=== PATIENT | male | born 1950 | race Caucasian/White ===

== ENCOUNTER 2018-12-20 19:24 | Emergency (ER) | payer MEDICARE, BC ==
[~2018-12-20] VITALS: Ht 190.5 cm; Wt 90.5 kg
[~2018-12-20 19:24] MED LIST: CEFTIN500 MG PO; CELLCEPT 5500 MG/TAB PO; CELLCEPT500 M1; COZAAR 50MG50 MG/TAB PO; DOXYCYCLINE 10100 MG PO; FLOMAX 0.40.4 MG/CAP; FOLGARD OS; FOLIC ACID 11 MG/TA1 PO; LIPITOR20 MG PO; NATURE'S BLEND400 IU PO; NORCO 325 MG-51 TAB PO; PEPCID AC20 MG; PHENERGAN 25 TA25 MG PO; PREDNISONE 5MG5 MG PO; VALIUM 5MG T5 MG/TAB PO; VITAMIN D32000 IU PO; ZOFRAN 4MG T4 MG/TAB PO
[2018-12-20 19:48] VITALS: TEMP 97.3
[2018-12-20 20:47] LABS: BASO # 0.1 (0.0-0.2); BASO % 0.3 % (0.0-2.0); EOS # 0.1 (0.0-0.7); EOS % 0.9 % (0-4.0); GRAN # 8.4 (1.4-6.5); GRAN % 55.8 % (42.2-75.2); HEMATOCRIT 50.8 % (42.0-52.0); HEMOGLOBIN 16.1 g/dl (13.5-18.0); LYMPH # 5.4 (1.2-3.4); LYMPH % 35.8 % (20.0-51.0); MEAN CELL VOLUME 94 fl (80.0-100.0); MEAN CORPUSCULAR HEMOGLOBIN 30 pg (27.0-31.0); MEAN CORPUSCULAR HGB CONC 32 g/dl (33.0-37.0); MEAN PLATELET VOLUME 9.1 fl (7.4-10.4); MONO % 6.9 % (1.7-9.3); PLATELET COUNT 265 K/mm3 (130-400); REDCELL DISTRIBUTION WIDTH-CV 14.5 % (11.5-14.5)
[2018-12-20 21:01] LABS: COLLECTION METHOD CLEAN CATCH
[2018-12-20 21:02] LABS: ALBUMIN 4.6 gm/dL (3.5-5.0); BILIRUBIN,TOTAL 0.7 mg/dL (0.0-1.0); C-REACTIVE PROTEIN 0.6 mg/dL (0.0-0.9); CALCIUM 11.6 mg/dL (8.4-10.2); CREATININE, serum 1.88 (0.66-1.25); POTASSIUM 4.2 mmol/L (3.4-5.0)
[2018-12-20 21:07] LABS: MUCOUS Present /lpf; PH 5 (5-8); SQUAMOUS EPITHELIAL None Seen /hpf; URINE APPEARANCE Clear; URINE BACTERIA None Seen /hpf; URINE BILIRUBIN Negative (NEGATIVE); URINE BLOOD Negative (NEGATIVE); URINE COLOR Yellow; URINE GLUCOSE Negative (NEGATIVE); URINE KETONE Negative (NEGATIVE); URINE LEUKOCYTE ESTERASE Negative (NEGATIVE); URINE NITRATE Negative (NEGATIVE); URINE PROTEIN(semi-quant) Negative (NEGATIVE); URINE RBC 0-2 /hpf; URINE UROBILINOGEN Negative (NEGATIVE); URINE WBC 0-2 /hpf
[2018-12-20] MEDS ORDERED: ZITHROMAX500 M2 PO (23:09)
[2018-12-20] MEDS ORDERED: ZOFRAN 4MG T4 MG/TAB PO (23:09)
[2018-12-20 23:30] VITALS: BP 142/87; PULSE 89
== END 2018-12-20 23:45 | disposition home or self-care (01) ==
LOC: COL.ER 19:24
PROVIDERS: Emergency Medicine
DX: A08.39 Other viral enteritis (principal); I10 Essential (primary) hypertension
CPT/HCPCS: J2405; J7030

== ENCOUNTER 2021-06-15 18:27 | Emergency (ER) | payer BC ==
[~2021-06-15] VITALS: Ht 190.5 cm; Wt 90.9 kg
[~2021-06-15 18:27] MED LIST changes: +ZITHROMAX500 M2 PO
[2021-06-15] MEDS ORDERED: COREG 3.123.125 MG/T PO (21:05)
[2021-06-15] MEDS ORDERED: NORVASC 5MG5 MG/TAB PO (21:05)
[2021-06-15 22:04] LABS: BASO # 0.1 K/mm3 (0.0-0.2); BASO % 0.5 % (0.0-2.0); EOS # 0.2 K/mm3 (0.0-0.7); GRAN # 5.5 K/mm3 (1.4-6.5); GRAN % 46.1 % (42.2-75.2); HEMATOCRIT 42.1 % (42.0-52.0); HEMOGLOBIN 13.5 g/dl (13.5-18.0); LYMPH # 5.2 K/mm3 (1.2-3.4); LYMPH % 42.8 % (20.0-51.0); MEAN CELL VOLUME 90 fl (80.0-100.0); MEAN CORPUSCULAR HEMOGLOBIN 29 pg (27.0-31.0); MEAN CORPUSCULAR HGB CONC 32 g/dl (33.0-37.0); MONO % 8.4 % (1.7-9.3); PLATELET COUNT 300 K/mm3 (130-400); RED BLOOD COUNT 4.69 M/mm3 (4.20-5.60); REDCELL DISTRIBUTION WIDTH-CV 14.8 % (11.5-14.5)
[2021-06-15 22:28] LABS: ALBUMIN 4.1 gm/dL (3.4-4.8); BILIRUBIN,TOTAL 0.5 mg/dL (0.2-1.2); CALCIUM 11.5 mg/dL (8.4-10.2); CREATININE, serum 1.84 mg/dL (0.72-1.25); POTASSIUM 4.1 mmol/L (3.5-4.5); TOTAL PROTEIN 7.3 gm/dL (6.2-8.1)
[2021-06-15 23:15] VITALS: BP 142/79; PULSE 84; TEMP 98.1
== END 2021-06-15 23:15 ==
LOC: COL.ER 18:27
PROVIDERS: Nurse Practitioner
DX: M79.604 Pain in right leg (principal); R79.1 Abnormal coagulation profile

== ENCOUNTER → 2021-06-17 | Outpatient (CLI) | payer BC ==
[~2021-06-17] MED LIST changes: +COREG 3.123.125 MG/T PO; +NORVASC 5MG5 MG/TAB PO
== END ==
LOC: COL.VAS 07:49
DX: M79.604 Pain in right leg (principal)

== ENCOUNTER 2022-01-28 01:44 | Emergency (ER) | payer BC ==
[~2022-01-28] VITALS: Ht 190.5 cm; Wt 86.4 kg
[~2022-01-28 01:44] MED LIST changes: +MASON NATURAL2000 IU PO; +NATURAL E400 IU PO; -NATURE'S BLEND400 IU PO; -PEPCID AC20 MG; +PEPCID AC20 MG PO; -PREDNISONE 5MG5 MG PO; -VITAMIN D32000 IU PO
[2022-01-28 01:49] VITALS: TEMP 99.6
[2022-01-28 02:23] LABS: BASO % 0.4 % (0.0-2.0); EOS % 0.4 % (0.0-4.0); GRAN # 3.9 K/mm3 (1.4-6.5); GRAN % 68.1 % (42.2-75.2); HEMATOCRIT 38.9 % (42.0-52.0); HEMOGLOBIN 12.4 g/dl (13.5-18.0); LYMPH # 1.2 K/mm3 (1.2-3.4); LYMPH % 21.9 % (20.0-51.0); MEAN CELL VOLUME 87 fl (80.0-100.0); MEAN CORPUSCULAR HEMOGLOBIN 28 pg (27-31); MEAN CORPUSCULAR HGB CONC 32 g/dl (33.0-37.0); MEAN PLATELET VOLUME 9.2 fl (7.4-10.4); MONO # 0.5 K/mm3 (0.1-0.6); MONO % 8.8 % (1.7-9.3); PLATELET COUNT 256 K/mm3 (130-400); RED BLOOD COUNT 4.48 M/mm3 (4.20-5.60); REDCELL DISTRIBUTION WIDTH-CV 14.4 % (11.5-14.5)
[2022-01-28 02:41] LABS: ALBUMIN 3.2 gm/dL (3.4-4.8); BILIRUBIN,TOTAL 0.4 mg/dL (0.2-1.2); CREATININE, serum 1.96 mg/dL (0.72-1.25); POTASSIUM 4.5 mmol/L (3.5-4.5); TOTAL PROTEIN 6.5 gm/dL (6.2-8.1)
[2022-01-28] MEDS ORDERED: TESSALON PERLE200 MG PO (03:01)
[2022-01-28 03:08] VITALS: BP 132/84; PULSE 86
== END 2022-01-28 03:09 | disposition home or self-care (01) ==
LOC: COL.ER 01:44
PROVIDERS: Emergency Medicine Emergency Medical Services
DX: U07.1 COVID-19 (principal); Z73.0 Burn-out
CPT/HCPCS: J7030

== ENCOUNTER 2022-01-30 13:10 | Outpatient (RCR) | payer BC ==
[~2022-01-30] VITALS: Ht 190.5 cm; Wt 86.3 kg
[~2022-01-30 13:10] MED LIST changes: +TESSALON PERLE200 MG PO
[2022-01-30 13:19] VITALS: BP 116/103; PULSE 66
[2022-01-30 13:30] VITALS: BP 104/57; PULSE 54; TEMP 98.3
[2022-01-30 13:45] VITALS: BP 109/50; PULSE 53
[2022-01-30 14:00] VITALS: BP 108/59; PULSE 52
[2022-01-30 14:15] VITALS: BP 113/52; PULSE 51
[2022-01-30 14:40] VITALS: BP 118/57; PULSE 52
[2022-01-30] MEDS ORDERED: PREDNISONE 5MG5 MG PO (15:32)
== END 2022-01-30 15:32 ==
LOC: EUO 13:10
DX: U07.1 COVID-19 (principal); N18.9 Chronic kidney disease, unspecified
CPT/HCPCS: M0222; Q0222

== ENCOUNTER → 2022-04-17 | Outpatient (CLI) | payer BC ==
[~2022-04-17] MED LIST changes: +PREDNISONE 5MG5 MG PO
== END ==
LOC: COL.VAS 09:55
DX: M79.89 Other specified soft tissue disorders (principal); I77.0 Arteriovenous fistula, acquired

== ENCOUNTER 2023-08-21 08:56 | Inpatient (IN) | payer MEDICARE ==
[2023-08-21] VITALS (7 sets, daily range): BP systolic 146–174; BP diastolic 78–86; PULSE 71–94; TEMP 98.2–98.4
[~2023-08-21] VITALS: Ht 190.5 cm; Wt 84.5 kg
[~2023-08-21 08:56] MED LIST changes: +APRESOLINE 25MG25 MG PO; +BACTRIM DS 8001 TAB PO; +CEPHALEXIN500 M1 PO; +DESYREL 50MG50 MG PO; +FERROUSAL325 MG PO; +FOLGARD RX 1 MG1 TAB PO; +HYTRIN 1MG C1 MG/CAP PO; +LASIX 20MG TABL20 MG PO; +MAG-OX 400400 MG/TAB PO; +NORVASC 10MG10 MG PO; +OMNICEF 300MG300 MG PO; +OXYGEN NASAL.CANN; +PROBIOTIC ACID1 EAC3 PO; +SEPTRA DS 8001 TAB PO; +SPORANOX100 MG PO; +TYLENOL 500MG500 MG PO; +ZYVOX 600MG600 MG PO; +[UNRECOGNIZED DRUG - SUPPLY] ICA
[2023-08-21 09:35] LABS: COLLECTION METHOD CLEAN CATCH
[2023-08-21 09:40] LABS: BASO % 0.2 % (0.0-2.0); EOS # 0.1 K/mm3 (0.0-0.7); EOS % 0.6 % (0.0-4.0); GRAN # 7.4 K/mm3 (1.4-6.5); GRAN % 72.3 % (42.2-75.2); HEMOGLOBIN 10.5 g/dl (13.5-18.0); LYMPH # 1.4 K/mm3 (1.2-3.4); LYMPH % 14.1 % (20.0-51.0); MEAN CELL VOLUME 89 fl (80.0-100.0); MEAN CORPUSCULAR HEMOGLOBIN 28 pg (27-31); MEAN CORPUSCULAR HGB CONC 31 g/dl (33.0-37.0); MEAN PLATELET VOLUME 10.3 fl (7.4-10.4); MONO # 1.3 K/mm3 (0.1-0.6); MONO % 12.4 % (1.7-9.3); PLATELET COUNT 213 K/mm3 (130-400); RED BLOOD COUNT 3.76 M/mm3 (4.20-5.60); REDCELL DISTRIBUTION WIDTH-CV 18.6 % (11.5-14.5)
[2023-08-21 09:54] LABS: HEMATOCRIT 33.5 % (42.0-52.0)
[2023-08-21 09:56] LABS: ALBUMIN 3.6 gm/dL (3.4-4.8); BILIRUBIN,TOTAL 0.5 mg/dL (0.2-1.2); C-REACTIVE PROTEIN 2.2 mg/dL (0.00-0.50); CALCIUM 10.2 mg/dL (8.4-10.2); CREATININE, serum 1.61 mg/dL (0.72-1.25); POTASSIUM 4.3 mmol/L (3.5-4.5); TOTAL PROTEIN 5.9 gm/dL (6.2-8.1)
[2023-08-21 10:07] LABS: URINE APPEARANCE Clear (CLEAR/HAZY); URINE COLOR Yellow (YELLOW); URINE GLUCOSE Negative (NEGATIVE); URINE KETONE Negative (NEGATIVE); URINE PROTEIN(semi-quant) 2+ (NEGATIVE)
[2023-08-21 10:08] LABS: SQUAMOUS EPITHELIAL None Seen /hpf (0-10); URINE BACTERIA Rare /hpf (NONE SEEN); URINE BLOOD TRACE-INTACT (NEGATIVE); URINE NITRATE Negative (NEGATIVE); URINE RBC 0-2 /hpf (0-2); URINE UROBILINOGEN 0.2 E.U/dL (0.2-1.0)
[2023-08-21] MEDS ORDERED: ZOFRAN 4MG T4 MG/TAB PO (13:10)
[2023-08-21] MEDS ORDERED: PEPCID 20MG TAB20 MG PO (13:11)
[2023-08-21] MEDS ORDERED: COZAAR 50MG50 MG/TAB PO (13:12)
--- NOTE | 2023-08-21 13:37 | NUR ---
Patient arrived to the medical unit, alert and oriented x 4 VSS with some HTN. Denies any pain at this time. Assessment intake completed.
--- NOTE | 2023-08-21 19:14 | NUR ---
Patient is resting in bed, waiting for his dinner. Report given to LILIANA Strauss.
[2023-08-22] VITALS (10 sets, daily range): BP systolic 123–146; BP diastolic 69–79; PULSE 7–76; TEMP 98.1–98.5
--- NOTE | 2023-08-22 05:22 | NUR ---
NURSING SHIFT ASSESSMENT COMPLETED. THE PATIENT WAS ALERT AND ORIENTED. THE PATIENT APPEARED COMFORTABLE AND WITHOUT DISTRESS. FRESH WATER PROVIDED. NO OTHER NEEDS AT THIS TIME. EVENING MEDICATIONS AND THE PLAN OF CARE REVIEWED. CALL LIGHT AND PERSONAL BELONGINGS WITHIN REACH. BED IN LOW POSITION.
[2023-08-22 08:02] LABS: BASO % 0.2 % (0.0-2.0); EOS # 0.1 K/mm3 (0.0-0.7); EOS % 0.8 % (0.0-4.0); GRAN # 6.9 K/mm3 (1.4-6.5); GRAN % 70.1 % (42.2-75.2); LYMPH # 1.7 K/mm3 (1.2-3.4); LYMPH % 16.9 % (20.0-51.0); MEAN CELL VOLUME 87 fl (80.0-100.0); MEAN CORPUSCULAR HGB CONC 31 g/dl (33.0-37.0); MEAN PLATELET VOLUME 9.4 fl (7.4-10.4); MONO # 1.1 K/mm3 (0.1-0.6); MONO % 11.6 % (1.7-9.3); PLATELET COUNT 194 K/mm3 (130-400); REDCELL DISTRIBUTION WIDTH-CV 18.6 % (11.5-14.5)
[2023-08-22 08:04] LABS: HEMATOCRIT 31.4 % (42.0-52.0); HEMOGLOBIN 9.8 g/dl (13.5-18.0); MEAN CORPUSCULAR HEMOGLOBIN 27 pg (27-31)
[2023-08-22 08:21] LABS: CALCIUM 9.3 mg/dL (8.4-10.2); CREATININE, serum 1.4 mg/dL (0.72-1.25)
--- NOTE | 2023-08-22 10:43 | NUR ---
Patient alert and oriented x4. Shift assessment complete. Patient complained of nausea and discomfort at shift change, PRN Zofran and Tylenol administered by overnight nurse. Patient has been ambulating self around room, gait steady. Currently in bed with call light in reach, all needs met at this time.
--- NOTE | 2023-08-22 12:59 | NUR ---
Clerical Warehouse Worker met with patient to discuss discharge planning. Patient lives in [place] with his , Teresa (ph#[phone]) and he sees Dr. Portillo for primary care. Patient advised his , Teresa lives in [place] and works there as a nurse. Patient obtains medications from [facility] with no difficulties and does not use any DME. Patient is independent with ADLS and is able to drive himself to medical appointments. Patient advised Teresa is his DPOA-HC and there is a copy located in his safe deposit box at home. Discharge Plan: Home
--- NOTE | 2023-08-22 13:38 | NUR ---
Data: Babbitt Spinner visit offered during Babbitt Spinner rounds. Assessment: Patient declined visit. Plan of Care: [facility]plains will remain available upon Patient's request while admitted to this hospital.
--- NOTE | 2023-08-22 18:47 | NUR ---
Patient remains stable. Denies pain at this time. Ambulating at baseline. Patient has had good urine output all throughout shift. Tolerating food and fluids well. Patient currently in bed with call light in reach, all needs met at this time.
--- NOTE | 2023-08-22 23:22 | NUR ---
patient lying in bed alert and oriented x4. pt denies chest pain and shortness of breath. IV in RF is patent, site clean dry and intact. pt refused melatonin at this time. no remarkable skin findings noted. pt ambulating with steady gait. call light within reach, will continue to monitor.
[2023-08-23] VITALS (13 sets, daily range): BP systolic 129–163; BP diastolic 64–92; PULSE 59–85; TEMP 97.5–99.2
[2023-08-23 07:11] LABS: BASO % 0.2 % (0.0-2.0); EOS # 0.2 K/mm3 (0.0-0.7); EOS % 2.1 % (0.0-4.0); GRAN # 6.3 K/mm3 (1.4-6.5); GRAN % 69.6 % (42.2-75.2); LYMPH # 1.5 K/mm3 (1.2-3.4); LYMPH % 16.1 % (20.0-51.0); MEAN CELL VOLUME 89 fl (80.0-100.0); MEAN CORPUSCULAR HGB CONC 31 g/dl (33.0-37.0); MEAN PLATELET VOLUME 9.7 fl (7.4-10.4); MONO # 1.1 K/mm3 (0.1-0.6); MONO % 11.7 % (1.7-9.3); PLATELET COUNT 193 K/mm3 (130-400); RED BLOOD COUNT 3.24 M/mm3 (4.20-5.60); REDCELL DISTRIBUTION WIDTH-CV 18.4 % (11.5-14.5)
[2023-08-23 07:16] LABS: HEMATOCRIT 28.8 % (42.0-52.0); MEAN CORPUSCULAR HEMOGLOBIN 28 pg (27-31)
[2023-08-23 07:30] LABS: CALCIUM 8.9 mg/dL (8.4-10.2); CREATININE, serum 1.32 mg/dL (0.72-1.25); POTASSIUM 3.9 mmol/L (3.5-4.5)
--- NOTE | 2023-08-23 11:30 | NUR ---
Patient alert and oriented x4. Shift assessment complete. Lowgrade temperature noted and patient complains of achey muscles. PRN Tylenol administered. Urine output adequate and yellow/clear. Activity at baseline. Patient in bed with call light in reach, all needs met at this time.
--- NOTE | 2023-08-23 17:15 | NUR ---
Patient remains stable. Mood is pleasant and activity is at baseline. Patient took a shower independent with cares. Voices no concerns other that discharge planning. All needs met at this time.
--- NOTE | 2023-08-23 20:10 | NUR ---
Patient assessed at this time, see shift assessment, remains on room air, still with IV infusing well on right forearm, requested tylenol, denies further needs, call light and personal items within reach, will continue to monitor.
[2023-08-24] VITALS (11 sets, daily range): BP systolic 144–175; BP diastolic 79–88; PULSE 50–71; TEMP 97.5–99
--- NOTE | 2023-08-24 04:04 | NUR ---
Patient's blood pressure is 170/80 manual, informed Marilyn Banegas and received an order for hydralazine.
[2023-08-24 07:23] LABS: BASO % 0.4 % (0.0-2.0); EOS # 0.2 K/mm3 (0.0-0.7); EOS % 2.9 % (0.0-4.0); GRAN # 4.4 K/mm3 (1.4-6.5); GRAN % 60.9 % (42.2-75.2); LYMPH # 1.9 K/mm3 (1.2-3.4); LYMPH % 25.6 % (20.0-51.0); MEAN CELL VOLUME 90 fl (80.0-100.0); MEAN CORPUSCULAR HGB CONC 31 g/dl (33.0-37.0); MEAN PLATELET VOLUME 10.1 fl (7.4-10.4); MONO # 0.7 K/mm3 (0.1-0.6); MONO % 9.8 % (1.7-9.3); PLATELET COUNT 235 K/mm3 (130-400); RED BLOOD COUNT 3.33 M/mm3 (4.20-5.60); REDCELL DISTRIBUTION WIDTH-CV 18.6 % (11.5-14.5)
[2023-08-24 07:24] LABS: HEMATOCRIT 29.8 % (42.0-52.0); HEMOGLOBIN 9.1 g/dl (13.5-18.0); MEAN CORPUSCULAR HEMOGLOBIN 27 pg (27-31)
[2023-08-24 07:39] LABS: CALCIUM 9.3 mg/dL (8.4-10.2); CREATININE, serum 1.33 mg/dL (0.72-1.25); POTASSIUM 3.8 mmol/L (3.5-4.5)
--- NOTE | 2023-08-24 09:58 | NUR ---
PT DOING WELL THIS MORNING, WATCHING THE NEWS IN BED ON ASSESSMENT. NO COMPLAINTS OF PAIN OR DISCOMFORT. PT STATED HE IS READY TO GET HOME AND NEEDS TO LEAVE TODAY HE HAS CONTRACTURES COMING TO HIS HOUSE AND HE CANNOT MISS THEM. PT STATED HE WOULD LIKE TO DISCHARGE AFTER MEETING WITH INFECTIOUS DISEASE. PT STATED HE IS WILLING TO DO OUT PATIENT INFUSIONS OR MEDICATION NEEDED BUT CAN NOT STAY IN THE HOSPITAL.
--- NOTE | 2023-08-24 15:40 | NUR ---
oncology social worker attended clinical rounds and was informed pt is waiting on ID consult to determine the need for IV antibiotics. Pt is adamant on discharging today. Pt has used outpatient PT at [facility] and is reccomened to continue. oncology social worker completed IM from [employer] with pt. Pt signed and copy put in his discharge packet. Original in chart. Pending ID consult at this time. Discharge Plan: Home with Outpatient PT continued
[2023-08-24] MEDS ORDERED: ZYVOX 600MG600 MG PO (17:28)
--- NOTE | 2023-08-24 18:14 | NUR ---
ALL DISCHARGE INSTRUCTIONS REVIEWED WITH PT, ALL QUESTIONS ANSWERED AT THAT TIME. IV SITE TO RIGHT FOREARM DISCONTINUED, CATHETER TIP INTACT. PT CURRENTLY PACKED AND READY TO DISCHARGE JUST WAITING FOR HIS RIDE TO ARRIVE. PT PLANS TO VESSEL TRAFFIC OFFICER PRESCRIPTION FROM [facility].
--- NOTE | 2023-08-24 18:29 | NUR ---
PT ESCORTED OUT VIA WHEELCHAIR BY PCT AT THIS TIME. ALL PERSONAL BELONGINGS TAKEN WITH PT.
== END 2023-08-24 18:30 | disposition home or self-care (01) | DRG 690 ==
LOC: COL.ER 08:56 → MEDICAL 12:08
PROVIDERS: Emergency Medicine; Nurse Practitioner Family; ADMIT Hospitalist
DX: N39.0 Urinary tract infection, site not specified (principal); Q61.3 Polycystic kidney, unspecified; N40.0 Benign prostatic hyperplasia without lower urinary tract symptoms; E78.5 Hyperlipidemia, unspecified; E79.0 Hyperuricemia without signs of inflammatory arthritis and tophaceous disease; K76.89 Other specified diseases of liver; D64.9 Anemia, unspecified; N18.30 Chronic kidney disease, stage 3 unspecified; I12.9 Hypertensive chronic kidney disease with stage 1 through stage 4 chronic kidney disease, or unspecified chronic kidney disease
CPT/HCPCS: OP; G0378; J0360; J2185; J2405; J7030; J7512; J7517; Q3014

== ENCOUNTER 2023-09-15 09:58 | Emergency (ER) | payer MEDICARE ==
[~2023-09-15] VITALS: Ht 182.9 cm; Wt 83.2 kg
[2023-09-15] VITALS (7 sets, daily range): BP systolic 137–153; BP diastolic 66–85; PULSE 64–70; TEMP 97.6–97.9
[~2023-09-15 09:58] MED LIST changes: +PEPCID 20MG TAB20 MG PO
[2023-09-15] MEDS ORDERED: NS 1,000 ML IV ONE (10:15)
[2023-09-15 10:18] LABS: BASO % 0.3 % (0.0-2.0); EOS % 0.7 % (0.0-4.0); GRAN # 3.5 K/mm3 (1.4-6.5); GRAN % 56.6 % (42.2-75.2); LYMPH # 2.1 K/mm3 (1.2-3.4); LYMPH % 34.8 % (20.0-51.0); MEAN CELL VOLUME 90 fl (80.0-100.0); MEAN CORPUSCULAR HGB CONC 30 g/dl (33.0-37.0); MEAN PLATELET VOLUME 9.6 fl (7.4-10.4); MONO # 0.5 K/mm3 (0.1-0.6); MONO % 7.3 % (1.7-9.3); PLATELET COUNT 152 K/mm3 (130-400); RED BLOOD COUNT 2.51 M/mm3 (4.20-5.60); REDCELL DISTRIBUTION WIDTH-CV 19.1 % (11.5-14.5)
[2023-09-15 10:29] LABS: HEMATOCRIT 22.7 % (42.0-52.0); HEMOGLOBIN 6.7 g/dl (13.5-18.0); MEAN CORPUSCULAR HEMOGLOBIN 27 pg (27-31)
[2023-09-15 10:31] LABS: ALANINE AMINOTRANSFERASE 17 U/L (0-55); ALBUMIN 3.3 gm/dL (3.4-4.8); ALKALINE PHOSPHATASE 68 U/L (40-150); ANION GAP 11 mmol/L (7-16); AST,SGOT 13 U/L (5-34); BILIRUBIN,TOTAL 0.9 mg/dL (0.2-1.2); BLOOD UREA NITROGEN 48 mg/dL (8-26); CALCIUM 9.9 mg/dL (8.4-10.2); CARBON DIOXIDE 18 mmol/L (23-31); CHLORIDE 112 mmol/L (98-107); CREATINE KINASE 20 U/L (30-200); CREATININE, serum 2.05 mg/dL (0.72-1.25); GLUCOSE 128 mg/dL (70-99); POTASSIUM 4.7 mmol/L (3.5-4.5); SODIUM 141 mmol/L (136-145); TOTAL PROTEIN 5.3 gm/dL (6.2-8.1)
[2023-09-15 10:36] LABS: TROPONIN-I < 0.010 ng/mL (0.00-0.033)
[2023-09-15] MEDS ORDERED: Ondansetron 4 MG/2 ML VIAL IV ONE (10:45)
[2023-09-15 13:24] LABS: COLLECTION METHOD CLEAN CATCH
[2023-09-15 13:52] LABS: URINE APPEARANCE Clear (CLEAR/HAZY); URINE BLOOD Negative (NEGATIVE); URINE COLOR Yellow (YELLOW); URINE GLUCOSE Negative (NEGATIVE); URINE KETONE Negative (NEGATIVE); URINE NITRATE Negative (NEGATIVE); URINE PROTEIN(semi-quant) Negative (BEGATIVE); URINE UROBILINOGEN 0.2 E.U/dL (0.2-1.0)
[2023-09-15 13:53] LABS: SQUAMOUS EPITHELIAL 0-2 /hpf (0-10); URINE RBC None Seen /hpf (0-2)
== END 2023-09-15 16:22 | disposition short-term general hospital (02) ==
LOC: COL.ER 09:58
PROVIDERS: Emergency Medicine
DX: R55 Syncope and collapse (principal); D64.9 Anemia, unspecified; N17.9 Acute kidney failure, unspecified; N20.2 Calculus of kidney with calculus of ureter; N39.0 Urinary tract infection, site not specified; B95.2 Enterococcus as the cause of diseases classified elsewhere; Z94.0 Kidney transplant status
CPT/HCPCS: J2405; J7030; P9016

== ENCOUNTER 2024-01-27 15:21 | Emergency (ER) | payer MEDICARE ==
[~2024-01-27] VITALS: Ht 188 cm; Wt 88.6 kg
[~2024-01-27 15:21] MED LIST changes: +ASPIRIN E.C. 8181 MG PO; +COREG 6.256.25 MG/TA PO; +MACROBID 1100 MG/CAP PO; +NATURAL MAGNES200 MG PO; +NITROSTAT0.4 MG/TAB SL; +VITAMIN E 400 U4001 PO; +[UNRECOGNIZED DRUG - OTHER] PO
[2024-01-27 15:31] VITALS: TEMP 97.6
[2024-01-27] MEDS ORDERED: LR 1,000 ML IV ONE (17:15)
[2024-01-27 17:33] LABS: BASO % 0.2 % (0.0-2.0); EOS # 0.3 K/mm3 (0.0-0.7); GRAN # 4.7 K/mm3 (1.4-6.5); GRAN % 54.7 % (42.2-75.2); HEMATOCRIT 46.2 % (42.0-52.0); HEMOGLOBIN 13.9 g/dl (13.5-18.0); LYMPH # 2.6 K/mm3 (1.2-3.4); LYMPH % 29.6 % (20.0-51.0); MEAN CELL VOLUME 92 fl (80.0-100.0); MEAN CORPUSCULAR HEMOGLOBIN 28 pg (27-31); MEAN CORPUSCULAR HGB CONC 30 g/dl (33.0-37.0); MEAN PLATELET VOLUME 9.7 fl (7.4-10.4); MONO # 1.1 K/mm3 (0.1-0.6); MONO % 12.3 % (1.7-9.3); PLATELET COUNT 230 K/mm3 (130-400); RED BLOOD COUNT 5.01 M/mm3 (4.20-5.60); REDCELL DISTRIBUTION WIDTH-CV 15.8 % (11.5-14.5)
[2024-01-27 18:32] LABS: ALBUMIN 3.7 g/dL (3.4-4.8); MAGNESIUM 1.8 mg/dL (1.6-2.6); POTASSIUM 4.3 mEq/L (3.5-4.5)
[2024-01-27 18:39] LABS: CREATININE, serum 2.06 mg/dL (0.72-1.25)
[2024-01-27 21:46] VITALS: BP 167/100; PULSE 83
== END 2024-01-27 21:54 | disposition home or self-care (01) ==
LOC: COL.ER 15:21
PROVIDERS: Emergency Medicine
DX: N28.9 Disorder of kidney and ureter, unspecified (principal); R19.7 Diarrhea, unspecified; Z94.0 Kidney transplant status; Z90.5 Acquired absence of kidney
CPT/HCPCS: J7120

== ENCOUNTER 2024-01-31 09:59 | Emergency (ER) | payer MEDICARE ==
[~2024-01-31] VITALS: Ht 188 cm; Wt 86.8 kg
[2024-01-31 10:04] VITALS: TEMP 97.6
[2024-01-31] MEDS ORDERED: Ondansetron 4 MG/2 ML VIAL IV ONE (10:45)
[2024-01-31] MEDS ORDERED: NS 1,000 ML IV ONE ×2 (10:45→12:00)
[2024-01-31 10:46] LABS: BASO % 0.3 % (0.0-2.0); EOS # 0.1 K/mm3 (0.0-0.7); EOS % 1.7 % (0.0-4.0); GRAN # 2.8 K/mm3 (1.4-6.5); GRAN % 39.1 % (42.2-75.2); HEMATOCRIT 45.2 % (42.0-52.0); HEMOGLOBIN 13.6 g/dl (13.5-18.0); LYMPH # 2.9 K/mm3 (1.2-3.4); LYMPH % 41.3 % (20.0-51.0); MEAN CELL VOLUME 92 fl (80.0-100.0); MEAN CORPUSCULAR HEMOGLOBIN 28 pg (27-31); MEAN CORPUSCULAR HGB CONC 30 g/dl (33.0-37.0); MEAN PLATELET VOLUME 9.9 fl (7.4-10.4); MONO # 1.2 K/mm3 (0.1-0.6); MONO % 17.5 % (1.7-9.3); PLATELET COUNT 245 K/mm3 (130-400); RED BLOOD COUNT 4.91 M/mm3 (4.20-5.60); REDCELL DISTRIBUTION WIDTH-CV 15.5 % (11.5-14.5)
[2024-01-31 11:06] LABS: ALBUMIN 3.6 g/dL (3.4-4.8); BILIRUBIN,TOTAL 1.2 mg/dL (0.2-1.2); CREATININE, serum 1.85 mg/dL (0.72-1.25); MAGNESIUM 1.6 mg/dL (1.6-2.6); POTASSIUM 4.1 mEq/L (3.5-4.5); TOTAL PROTEIN 6.5 g/dl (6.2-8.1)
[2024-01-31] MEDS ORDERED: ZOFRAN ODT4 MG PO (11:52)
[2024-01-31] MEDS ORDERED: ANTI-DIARRHEAL2 MG PO (11:52)
[2024-01-31 12:14] LABS: COLLECTION METHOD CLEAN CATCH
[2024-01-31 13:10] LABS: PH 5.5 (5.0-8.5); URINE APPEARANCE Clear (CLEAR/HAZY); URINE COLOR Yellow (YELLOW); URINE PROTEIN(semi-quant) TRACE (NEGATIVE)
[2024-01-31 13:11] LABS: URINE BLOOD Negative (NEGATIVE); URINE GLUCOSE Negative (NEGATIVE); URINE KETONE Negative (NEGATIVE); URINE NITRATE Negative (NEGATIVE); URINE UROBILINOGEN 0.2 E.U/dL (0.2-1.0)
[2024-01-31 13:56] VITALS: BP 146/88; PULSE 68
== END 2024-01-31 13:56 | disposition home or self-care (01) ==
LOC: COL.ER 09:59
PROVIDERS: Physician Assistant
DX: R11.2 Nausea with vomiting, unspecified (principal); R19.7 Diarrhea, unspecified; Z94.0 Kidney transplant status
CPT/HCPCS: J2405; J7030

== ENCOUNTER 2024-02-21 09:41 | Emergency (ER) | payer MEDICARE ==
[~2024-02-21] VITALS: Ht 188 cm; Wt 86.4 kg
[~2024-02-21 09:41] MED LIST changes: +ANTI-DIARRHEAL2 MG PO; +ZOFRAN ODT4 MG PO
[2024-02-21] MEDS ORDERED: Ondansetron 4 MG/2 ML VIAL IV ONE (10:00)
[2024-02-21] MEDS ORDERED: NS 1,000 ML IV SCH (10:00)
[2024-02-21 10:11] LABS: BASO % 0.1 % (0.0-2.0); EOS % 0.3 % (0.0-4.0); GRAN # 10.9 K/mm3 (1.4-6.5); HEMATOCRIT 39.5 % (42.0-52.0); LYMPH # 2.8 K/mm3 (1.2-3.4); LYMPH % 19.9 % (20.0-51.0); MEAN CELL VOLUME 92 fl (80.0-100.0); MEAN CORPUSCULAR HEMOGLOBIN 28 pg (27-31); MEAN CORPUSCULAR HGB CONC 30 g/dl (33.0-37.0); MEAN PLATELET VOLUME 9.8 fl (7.4-10.4); MONO # 0.2 K/mm3 (0.1-0.6); MONO % 1.4 % (1.7-9.3); PLATELET COUNT 215 K/mm3 (130-400); RED BLOOD COUNT 4.29 M/mm3 (4.20-5.60)
[2024-02-21 10:27] LABS: ALBUMIN 3.5 g/dL (3.4-4.8); BILIRUBIN,TOTAL 0.9 mg/dL (0.2-1.2); CALCIUM 10.2 mg/dL (8.4-10.2); CREATININE, serum 2.75 mg/dL (0.72-1.25); POTASSIUM 4.6 mEq/L (3.5-4.5); TOTAL PROTEIN 5.8 g/dl (6.2-8.1)
[2024-02-21] MEDS ORDERED: LR 1,000 ML IV ONE (11:30)
[2024-02-21 11:39] LABS: COLLECTION METHOD CLEAN CATCH
[2024-02-21 11:50] LABS: PH 5.5 (5.0-8.5); URINE APPEARANCE CLOUDY (CLEAR/HAZY); URINE BLOOD 1+ (NEGATIVE); URINE COLOR YELLOW (YELLOW); URINE GLUCOSE NEGATIVE (NEGATIVE); URINE KETONE NEGATIVE (NEGATIVE); URINE NITRATE POSITIVE (NEGATIVE); URINE PROTEIN(semi-quant) 2+ (NEGATIVE); URINE UROBILINOGEN 0.2 E.U/dL (0.2-1.0)
[2024-02-21] MEDS ORDERED: cefTRIAXone 2 G in Water For Injection,Sterile 20 ML IV ONE (12:00)
[2024-02-21] MEDS ORDERED: ZOFRAN ODT4 MG PO (13:18)
[2024-02-21] MEDS ORDERED: ZYVOX100 MG/5 M PO (13:18)
[2024-02-21 13:45] VITALS: BP 133/67; PULSE 85; TEMP 99.3
[2024-02-21] MEDS ORDERED: Promethazine 50 MG/ML 1 ML VIAL IM ONE (13:45)
== END 2024-02-21 16:57 | disposition home or self-care (01) ==
LOC: COL.ER 09:41
PROVIDERS: Family Medicine
DX: N39.0 Urinary tract infection, site not specified (principal); E86.0 Dehydration; Z94.0 Kidney transplant status; Z90.5 Acquired absence of kidney
CPT/HCPCS: J0696; J2405; J2550; J7030; J7120